=== PATIENT | male | born 1975 | race Two or more races ===

== ENCOUNTER 2017-05-18 10:54 | Emergency (ER) | payer BC, MEDICARE ==
[~2017-05-18] VITALS: Ht 167.6 cm; Wt 63.0 kg
[2017-05-18] MEDS ORDERED: BACITRACIN ZINC OINT UDPKT TOP ONE (17:15)
[2017-05-18] MEDS ORDERED: KETOROLAC 60MG/2ML VIAL IM ONE (17:15)
[2017-05-18] MEDS ORDERED: TETANUS, DIPHTHERIA, PERTUSSIS VAC/PF 0.5ML (>7YR OLD) IM ONE (17:15)
[2017-05-18 17:35] VITALS: BP 118/78
== END 2017-05-18 18:25 | disposition home or self-care (01) ==
LOC: ER 16:04
DX: T23.221A Burn of second degree of single right finger (nail) except thumb, initial encounter (principal); Z91.048 Other nonmedicinal substance allergy status; X08.8XXA Exposure to other specified smoke, fire and flames, initial encounter; Y93.89 Activity, other specified; Y92.89 Other specified places as the place of occurrence of the external cause; Y99.8 Other external cause status
CPT/HCPCS: 90471; 90715; 96372; 99284; J1885

== ENCOUNTER 2020-12-17 22:57 | Inpatient (IN) | payer MEDICARE, MEDICAID ==
[~2020-12-17] VITALS: Ht 167.6 cm; Wt 60.3 kg
[~2020-12-17 22:57] MED LIST: HYDR-4350 MT; HYDR12.54 MT; METF-414 MT
[2020-12-18] MEDS ORDERED: PIPERACILLIN/TAZ 3.375G PREMIX 50 ML IV ONE (01:15)
[2020-12-18] MEDS ORDERED: VANCOMYCIN 1 G PREMIX 200 ML IV ONE (01:15)
[2020-12-18 01:28] LABS: BASOPHILS % 0.8 % (0.0-2.0); EOSINOPHILS % 0.9 % (0.0-5.0); HEMATOCRIT. 27.6 % (42.0-52.0); HEMOGLOBIN. 9.3 g/dL (14.0-18.0); LYMPHOCYTES % 18.3 % (20.0-50.0); MEAN CORPUSCULAR HEMOGLOBIN 30.9 pg (28.0-32.0); MEAN CORPUSCULAR VOLUME 91.3 fL (80.0-94.0); MONOCYTES % 5.4 % (2.0-8.0); NEUTROPHILS % 74.6 % (40.0-76.0); PLATELET 306 x1000/uL (130-400); RED BLOOD CELL COUNT 3.02 mill/uL (4.7-6.1); RED CELL DISTRIBUTION WIDTH 13.3 % (11.6-14.6)
[2020-12-18 01:35] LABS: CHLORIDE 101 mEq/L (98-107)
[2020-12-18 01:37] LABS: INR 0.9; PROTHROMBIN TIME 10.2 sec (9.6-11.0)
[2020-12-18] MEDS ORDERED: SODIUM CHLORIDE 0.9% 1000ML BAG (SEPSIS BOLUS) IV ONE (03:00)
[2020-12-18 08:25] VITALS: BP 147/93
[2020-12-18 12:00] VITALS: BP 125/78
[2020-12-18] MEDS ORDERED: MORPHINE SULFATE 2 MG/ML CPJ (NOT FOR IM USE) IV PRN (12:15)
[2020-12-18] MEDS ORDERED: CLONIDINE 0.1MG TABLET PO PRN (12:15)
[2020-12-18] MEDS ORDERED: GUAIFENESIN 200MG/10ML SUGAR FREE UDC PO PRN (12:15)
[2020-12-18] MEDS ORDERED: ACETAMINOPHEN 325MG TABLET PO PRN (12:15)
[2020-12-18] MEDS ORDERED: ONDANSETRON HCL 4MG/2ML INJ IV PRN (12:15)
[2020-12-18] MEDS ORDERED: IPRATROPIUM/ALBUTEROL 0.5-3(2.5)MG/3ML NEB NEB PRN (12:15)
[2020-12-18] MEDS ORDERED: LORAZEPAM 2MG/ML CPJ IV PRN (12:15)
[2020-12-18] MEDS ORDERED: DOCUSATE SODIUM 100MG CAPSULE PO PRN (12:15)
[2020-12-18] MEDS ORDERED: DIPHENHYDRAMINE 50MG/ML VIAL IV PRN (12:15)
[2020-12-18] MEDS ORDERED: NA PHOS,M-B/NA PHOS,DI-BA ENEMA 118ML PR PRN (12:15)
[2020-12-18] MEDS ORDERED: DEXTROSE 50% WATER 50ML SYRINGE IV PRN (12:15)
[2020-12-18] MEDS ORDERED: MAGNESIUM/ALUMINUM HYDROXIDE/SIMETHICONE 30ML UDC PO PRN (12:15)
[2020-12-18 13:00] VITALS: BP 125/78
[2020-12-18] MEDS: INSULIN LISPRO 100 UNITS/ML SUBCUT SCH ×3 (13:54→21:00)
[2020-12-18] MEDS: CEFTRIAXONE 1,000 MG in DEXTROSE 5% WATER 50 ML IV SCH (14:50)
[2020-12-18] MEDS: VANCOMYCIN 750 MG PREMIX 150 ML IV SCH ×2 (14:50→22:18)
[2020-12-18 16:00] VITALS: BP 168/96
[2020-12-18] MEDS ORDERED: SODIUM CHLORIDE 0.45% 1,000 ML IV SCH (16:45)
[2020-12-18] MEDS: BLOOD SUGAR DIAGNOSTIC STRIP TEST SCH ×2 (16:45→21:00)
[2020-12-18] MEDS ORDERED: SODIUM CHLORIDE 0.45% 1,000 ML IV ONE (17:00)
[2020-12-18] MEDS: LORAZEPAM 2MG/ML CPJ IV PRN ×2 (17:46→21:55)
[2020-12-18] MEDS: NICOTINE 21MG PATCH TD SCH (17:46)
[2020-12-18 20:00] VITALS: BP 166/98
[2020-12-18] MEDS ORDERED: FAMOTIDINE 20MG TABLET PO SCH (21:00)
[2020-12-18] MEDS: METRONIDAZOLE 500MG TABLET PO SCH (22:20)
[2020-12-19] MEDS: LORAZEPAM 2MG/ML CPJ IV PRN ×3 (02:17→13:56)
[2020-12-19 04:00] VITALS: BP 149/87
[2020-12-19] MEDS: METRONIDAZOLE 500MG TABLET PO SCH ×2 (05:05→13:54)
[2020-12-19] MEDS: VANCOMYCIN 750 MG PREMIX 150 ML IV SCH (05:05)
[2020-12-19] MEDS: HYDROCODONE/ACETAMINOPHEN 5/325MG TABLET PO PRN ×2 (06:06→12:08)
[2020-12-19] MEDS: BLOOD SUGAR DIAGNOSTIC STRIP TEST SCH ×2 (06:40→12:01)
[2020-12-19] MEDS: INSULIN LISPRO 100 UNITS/ML SUBCUT SCH ×2 (06:40→12:49)
[2020-12-19 08:00] VITALS: BP 160/92
[2020-12-19 10:05] LABS: BASOPHILS % 0.4 % (0.0-2.0); HEMATOCRIT. 25.6 % (42.0-52.0); HEMOGLOBIN. 8.7 g/dL (14.0-18.0); LYMPHOCYTES % 9.8 % (20.0-50.0); MEAN CORPUSCULAR HEMOGLOBIN 30.8 pg (28.0-32.0); MEAN CORPUSCULAR VOLUME 90.6 fL (80.0-94.0); MONOCYTES % 5.1 % (2.0-8.0); NEUTROPHILS % 84.7 % (40.0-76.0); PLATELET 270 x1000/uL (130-400); RED BLOOD CELL COUNT 2.82 mill/uL (4.7-6.1); RED CELL DISTRIBUTION WIDTH 13.5 % (11.6-14.6)
[2020-12-19 10:11] LABS: CHLORIDE 100 mEq/L (98-107)
[2020-12-19 10:19] LABS: LDL CHOLESTEROL 90 mg/dL (5-100)
[2020-12-19 10:21] LABS: HDL CHOLESTEROL 60 mg/dL (40-59); T4 FREE 1.49 ng/dL (0.76-1.46)
[2020-12-19] MEDS: CEFTRIAXONE 1,000 MG in DEXTROSE 5% WATER 50 ML IV SCH (10:49)
[2020-12-19] MEDS: NICOTINE 21MG PATCH TD SCH (10:50)
[2020-12-19] MEDS ORDERED: AMOX-424 MT (11:35)
[2020-12-19 12:00] VITALS: BP 182/97
[2020-12-19] MEDS ORDERED: VANCOMYCIN 1 G PREMIX 200 ML IV SCH (12:00)
[2020-12-19] MEDS ORDERED: SILVER SULFADIAZINE 1% CREAM 50GM TOP SCH (12:00)
[2020-12-19] MEDS ORDERED: LOSARTAN POTASSIUM 100 MG TABLET PO SCH (14:00)
[2020-12-19 14:07] VITALS: BP 163/84
== END 2020-12-19 15:55 | disposition home or self-care (01) | DRG 872 ==
LOC: ER 22:57 → 5WST 12-18 03:34 → EDBEDREQTM 12-18 03:36 → EDBEDREQ 12-18 03:36 → ENRESERV 12-18 07:42
PROVIDERS: ADMIT Internal Medicine; ATTEND Internal Medicine
DX: A41.9 Sepsis, unspecified organism (principal); L03.115 Cellulitis of right lower limb; L03.116 Cellulitis of left lower limb; F11.93 Opioid use, unspecified with withdrawal; E87.2 Acidosis; E44.1 Mild protein-calorie malnutrition; D64.9 Anemia, unspecified; E11.40 Type 2 diabetes mellitus with diabetic neuropathy, unspecified; F17.210 Nicotine dependence, cigarettes, uncomplicated; I10 Essential (primary) hypertension; Z20.822 Contact with and (suspected) exposure to COVID-19; T24.202A Burn of second degree of unspecified site of left lower limb, except ankle and foot, initial encounter; T24.201A Burn of second degree of unspecified site of right lower limb, except ankle and foot, initial encounter; Z91.19 Patient's noncompliance with other medical treatment and regimen; Z91.041 Radiographic dye allergy status; R19.7 Diarrhea, unspecified; Z71.51 Drug abuse counseling and surveillance of drug abuser; Z68.21 Body mass index [BMI] 21.0-21.9, adult
CPT/HCPCS: 36415; 71045; 73700; 80053; 80061; 80202; 82270; 82962; 83036; 83605; 83880; 84145; 84439; 84443; 84484; 85025; 85651; 86141; 87015; 87045; 87426; 87427; 87449; 87493; 89055; 93005; 93306; 93923; 93970; 97161; 99291; A6261; C1893; J0696; J1815; J2060; J2405; J2543; J3370; J7030; J7060

== ENCOUNTER 2021-10-22 15:54 | Emergency (ER) | payer MEDICARE, MEDICAID ==
[~2021-10-22] VITALS: Ht 167.6 cm; Wt 62.0 kg
[~2021-10-22 15:54] MED LIST changes: +AMOX-424 MT
[2021-10-22 17:56] LABS: HEMATOCRIT 29.4 % (42.0-52.0); HEMOGLOBIN 9.9 g/dL (14.0-18.0); MEAN CORPUSCULAR HEMOGLOBIN 31.2 pg (28.0-32.0); PLATELET 231 x1000/uL (130-400); RED BLOOD CELL COUNT 3.16 mill/uL (4.7-6.1)
[2021-10-22 18:03] LABS: CHLORIDE 103 mEq/L (98-107)
[2021-10-23 00:54] VITALS: BP 128/77
== END 2021-10-23 00:58 | disposition home or self-care (01) ==
LOC: ER 15:54
DX: L03.115 Cellulitis of right lower limb (principal); I10 Essential (primary) hypertension; E11.9 Type 2 diabetes mellitus without complications; Z91.041 Radiographic dye allergy status
CPT/HCPCS: 36415; 80053; 85027; 93970; 99284

== ENCOUNTER 2022-10-06 20:29 | Emergency (ER) | payer MEDICARE, MEDICAID ==
[~2022-10-06] VITALS: Ht 167.6 cm; Wt 63.0 kg
[2022-10-06 20:39] VITALS: BP 162/85
== END 2022-10-06 23:00 | disposition home or self-care (01) ==
LOC: ER 20:29
DX: M70.31 Other bursitis of elbow, right elbow (principal); E11.9 Type 2 diabetes mellitus without complications; I10 Essential (primary) hypertension; Z91.041 Radiographic dye allergy status; Z98.890 Other specified postprocedural states
CPT/HCPCS: 99281

== ENCOUNTER 2023-09-26 23:00 | Emergency (ER) | payer MEDICARE, MEDICAID ==
[~2023-09-26] VITALS: Ht 167.6 cm; Wt 61.0 kg
[2023-09-26 23:24] VITALS: BP 163/92; PULSE 82; RESP 16; TEMP 98.1; O2SAT 99
[2023-09-27] MEDS ORDERED: SODIUM CHLORIDE 0.9% 1,000 ML IV ONE (00:15)
[2023-09-27 00:57] LABS: BASOPHILS % 0.8 % (0.0-2.0); EOSINOPHILS % 0.2 % (0.0-5.0); HEMATOCRIT. 31.6 % (42.0-52.0); HEMOGLOBIN. 10.4 g/dL (14.0-18.0); LYMPHOCYTES % 12.8 % (20.0-50.0); MEAN CORPUSCULAR HEMOGLOBIN 31.1 pg (28.0-32.0); MEAN CORPUSCULAR HGB CONC 33.1 g/dL (31.0-37.0); MEAN CORPUSCULAR VOLUME 94.2 fL (80.0-94.0); MEAN PLATELET VOLUME 9.5 fl (7.4-10.4); MONOCYTES % 4.5 % (2.0-8.0); NEUTROPHILS % 81.7 % (40.0-76.0); PLATELET 274 x1000/uL (130-400); RED BLOOD CELL COUNT 3.35 mill/uL (4.7-6.1); RED CELL DISTRIBUTION WIDTH 12.5 % (11.6-14.6); WHITE BLOOD COUNT 14.3 x1000/uL (4.5-11.0)
[2023-09-27 01:29] LABS: ALANINE AMINOTRANSFERASE 10 IU/L (10-49); ALBUMIN 3.9 g/dL (3.2-4.8); ASPARTATE AMINOTRANSFERASE 13 IU/L (<34); BILIRUBIN TOTAL 0.3 mg/dL (0.1-1.0); CALCIUM 9.5 mg/dL (8.7-10.4); CARBON DIOXIDE 34 mEq/L (21-32); CHLORIDE 90 mEq/L (98-107); CREATININE 1.4 mg/dL (0.6-1.3); POTASSIUM 4.8 mEq/L (3.5-5.1); PROTEIN TOTAL 7.5 g/dL (6.0-8.3); SODIUM 129 mEq/L (136-145); UREA NITROGEN BLOOD 20 mg/dL (9-23)
[2023-09-27 01:33] LABS: PROTHROMBIN TIME 10.3 sec (9.6-11.0)
[2023-09-27 02:04] LABS: ETHANOL BLOOD < 10 mg/dL (<10); GLUCOSE 535 mg/dL (70-105)
[2023-09-27] MEDS ORDERED: INSULIN REGULAR (HUMULIN R) 300UNITS/3ML VIAL SUBCUT NR (03:00)
[2023-09-27 04:22] LABS: BETA HYDROXYBUTYRATE 0.1 mMol/L (0.0-0.3)
[2023-09-27] MEDS ORDERED: METFORMIN HCL 500MG TABLET PO ONE (04:30)
== END 2023-09-27 04:46 | disposition home or self-care (01) ==
LOC: ER 23:00
DX: E11.65 Type 2 diabetes mellitus with hyperglycemia (principal); I10 Essential (primary) hypertension; Z79.899 Other long term (current) drug therapy
CPT/HCPCS: 82962; 99284; 80053; 82010; 80320; 83605; 83690; 85025; 85610; 36415; 71045; 96360; 96361; J7030; G0480

== ENCOUNTER 2024-06-06 15:50 | Emergency (ER) | payer MEDICARE, MEDICAID ==
[~2024-06-06] VITALS: Ht 167.6 cm; Wt 66.0 kg
[2024-06-06 16:40] VITALS: BP 135/86; PULSE 79; RESP 16; TEMP 98.3; O2SAT 100
[2024-06-06] MEDS ORDERED: ACETAMINOPHEN 325MG TABLET PO ONE (18:15)
== END 2024-06-06 21:15 | disposition left against medical advice (07) ==
LOC: ER 15:50
DX: M54.9 Dorsalgia, unspecified (principal); Z53.21 Procedure and treatment not carried out due to patient leaving prior to being seen by health care provider
CPT/HCPCS: 82962

== ENCOUNTER 2024-12-27 22:11 | Emergency (ER) | payer MEDICARE, MEDICAID ==
[~2024-12-27] VITALS: Ht 167.6 cm; Wt 60.0 kg
[2024-12-27 22:22] VITALS: TEMP 36.8; O2SAT 100
[2024-12-27 23:02] LABS: BASOPHILS % 0.7 % (0.0-2.0); EOSINOPHILS % 0.8 % (0.0-5.0); HEMATOCRIT. 35.2 % (42.0-52.0); HEMOGLOBIN. 11.6 g/dL (14.0-18.0); LYMPHOCYTES % 22.4 % (20.0-50.0); MEAN CORPUSCULAR HGB CONC 33.1 g/dL (31.0-37.0); MEAN CORPUSCULAR VOLUME 96.6 fL (80.0-94.0); MEAN PLATELET VOLUME 10.6 fl (7.4-10.4); NEUTROPHILS % 71.1 % (40.0-76.0); PLATELET 207 x1000/uL (130-400); RED BLOOD CELL COUNT 3.64 mill/uL (4.7-6.1); RED CELL DISTRIBUTION WIDTH 13.1 % (11.6-14.6); WHITE BLOOD COUNT 7.4 x1000/uL (4.5-11.0)
[2024-12-27 23:09] LABS: POTASSIUM 4.4 mEq/L (3.5-5.1)
[2024-12-27 23:10] LABS: CALCIUM 8.4 mg/dL (8.7-10.4)
[2024-12-27 23:15] LABS: CREATININE 1.4 mg/dL (0.6-1.3)
[2024-12-28] MEDS: HYDROCODONE/ACETAMINOPHEN 5/325MG TABLET PO ONE (00:08)
[2024-12-28] MEDS: INSULIN REGULAR (HUMULIN R) 1000UNITS/10ML VIAL SUBCUT NR (02:35)
[2024-12-28] MEDS ORDERED: METF-416 MT (05:39)
[2024-12-28] MEDS ORDERED: BENA1TAB69 MT (05:39)
[2024-12-28 06:02] VITALS: BP 130/68; PULSE 66; RESP 13; O2SAT 98
== END 2024-12-28 06:46 | disposition home or self-care (01) ==
LOC: ER 22:11
DX: E11.65 Type 2 diabetes mellitus with hyperglycemia (principal); I10 Essential (primary) hypertension; Z79.899 Other long term (current) drug therapy; Z88.8 Allergy status to other drugs, medicaments and biological substances; Z98.890 Other specified postprocedural states
CPT/HCPCS: 99285; 71045; 80048; 82962 ×2; 83880; 85025; 36415; 93005; J1815; 96372

== ENCOUNTER 2025-05-20 17:18 | Emergency (ER) | payer MEDICARE, MEDICAID ==
[~2025-05-20] VITALS: Ht 165.1 cm; Wt 57.0 kg
[~2025-05-20 17:18] MED LIST changes: +BENA1TAB69 MT; +METF-416 MT
[2025-05-20 17:27] VITALS: TEMP 36.9; O2SAT 99
[2025-05-20] MEDS: LIDOCAINE HCL/EPINEPHRINE 1%-EPI 1:100,000 20ML VIAL INFIL NR (17:58)
[2025-05-20] MEDS ORDERED: LIDOCAINE HCL/EPINEPHRINE 1%-EPI 1:100,000 10ML VIAL INFIL ONE (18:00)
[2025-05-20] MEDS ORDERED: CEPH500C2 MT (20:08)
[2025-05-20] MEDS ORDERED: BACI1OIN7 TP (20:08)
[2025-05-20] MEDS ORDERED: TRAM50TA3 MT (20:09)
[2025-05-20] MEDS: BACITRACIN ZINC OINT UDPKT TOP ONE (20:10)
[2025-05-20 20:33] VITALS: BP 160/90; PULSE 75; RESP 18; O2SAT 98
== END 2025-05-20 20:36 | disposition home or self-care (01) ==
LOC: ER 17:36
DX: S81.811A Laceration without foreign body, right lower leg, initial encounter (principal); E11.9 Type 2 diabetes mellitus without complications; I10 Essential (primary) hypertension; Z79.84 Long term (current) use of oral hypoglycemic drugs; Z88.8 Allergy status to other drugs, medicaments and biological substances; Z79.899 Other long term (current) drug therapy; W18.39XA Other fall on same level, initial encounter; Y93.89 Activity, other specified; Y92.89 Other specified places as the place of occurrence of the external cause; Y99.8 Other external cause status
CPT/HCPCS: 99283; 73590; 12005; J2004